=== PATIENT | male | born 1950 | race Caucasian/White ===

== ENCOUNTER 2023-09-04 11:38 | Outpatient (CLI) | payer MEDICARE ==
--- NOTE | 2023-09-04 12:23 | Ultrasound Report ---
PROCEDURE: Aorta Screening INDICATIONS: AAA SCREENING TECHNIQUE: Real time scanning was performed of the aorta and iliac arteries, with image documentatio n. COMPARISON: None. FINDINGS: Aorta: Proximal aortic diameter measures 2.0 x 2.2 cm. Mid-aorta measures 2.0 x 2.0 cm. Distal aor tic diameter is 1.8 x 1.9 cm. Iliac arteries: Right common iliac artery measures 1.5 x 1.5 cm. Left common iliac artery measures 1.3 x 1.4 cm. IMPRESSION: No infrarenal aortic aneurysm. Reviewed by: Gabe Rankin on 09/04/2023 12:22 PM PDT Approved by: Gabe Rankin on 09/04/2023 12:22 PM PDT Station ID: [id number]
== END 2023-09-04 11:39 | disposition home or self-care (01) ==
LOC: DI 11:38
PROVIDERS: ATTEND Internal Medicine
DX: Z13.6 Encounter for screening for cardiovascular disorders (principal); Z87.891 Personal history of nicotine dependence